=== PATIENT | female | born 1995 ===

== ENCOUNTER 2022-05-13 01:36 | Emergency (ER) | payer OTHER ==
[~2022-05-13] VITALS: Ht 154.9 cm; Wt 63.5 kg
[2022-05-13] MEDS ORDERED: NEURONTIN300 MG PO (07:52)
== END 2022-05-13 08:24 | disposition home or self-care (01) ==
LOC: ER 01:36
DX: R10.2 Pelvic and perineal pain (principal)

== ENCOUNTER 2022-12-22 22:25 | Emergency (ER) | payer OTHER ==
[~2022-12-22] VITALS: Ht 157.5 cm; Wt 74.8 kg
[~2022-12-22 22:25] MED LIST: NEURONTIN300 MG PO
[2022-12-23] MEDS ORDERED: KETO10TA2 PO (01:28)
== END 2022-12-23 01:46 ==
LOC: ER 22:25
DX: M25.561 Pain in right knee (principal)